=== PATIENT | female | born 1970 | race Two or more races ===

== ENCOUNTER 2021-06-30 11:51 | Day surgery (SDC) | payer OTHER ==
[~2021-06-30 11:51] MED LIST: ATORVASTATIN CA10 MG PO; LYRICA20 MG/1 ML PO; PROTONIX20 MG PO; TRAZODONE HCL150 MG PO; WELLBUTRIN SR100 MG PO
== END 2021-06-30 22:55 | disposition home or self-care (01) ==
LOC: CIR.AMB 11:51
PROVIDERS: ATTEND Obstetrics & Gynecology Obstetrics
DX: Z88.2 Allergy status to sulfonamides (principal); Z88.6 Allergy status to analgesic agent; Z91.040 Latex allergy status; J45.909 Unspecified asthma, uncomplicated; G47.33 Obstructive sleep apnea (adult) (pediatric); G43.909 Migraine, unspecified, not intractable, without status migrainosus; F32.A Depression, unspecified; R20.2 Paresthesia of skin; Z20.822 Contact with and (suspected) exposure to COVID-19

== ENCOUNTER 2022-10-12 09:36 | Emergency (ER) | payer OTHER ==
[~2022-10-12] VITALS: Ht 157.5 cm; Wt 77.1 kg
[~2022-10-12 09:36] MED LIST changes: +BIOTIN10 MG; +BUPROPION XL150 MG; +BUPROPION XL300 MG; +CETIRIZINE HCL10 MG; +CLONAZEPAM2 M1 PO; +CYANOCOBAL1000 MCG/1; +DULOXETINE HCL60 MG; +EPINEPHRIN0.3 MG/0.3; +FERROUS FUMARA324 MG PO; +FOLIC ACID0.8 M1 PO; +FOLIC ACID1 MG; +LAXATIVE5 MG; +MODAFINIL200 MG; +MONTELUKAST SOD10 MG; +PANTOPRAZOLE SO40 MG; +PEPCID40 MG PO; +PRAVASTATIN SOD40 MG PO; +SERTRALINE HCL100 MG; +SUCRALFATE1 GM; +TRIPLE ANTIBI28.4 G3; +VENTOLIN HFA18 GM
[2022-10-12] MEDS ORDERED: PRAVASTATIN SODIUM (12:45)
[2022-10-12] MEDS ORDERED: CEPACOL SORE T1 EAC1 PO (12:47)
== END 2022-10-12 12:58 | disposition home or self-care (01) ==
LOC: ER 09:36
DX: J06.9 Acute upper respiratory infection, unspecified (principal); Z88.2 Allergy status to sulfonamides; Z91.013 Allergy to seafood; Z91.040 Latex allergy status; M79.7 Fibromyalgia; G62.9 Polyneuropathy, unspecified; J06.0 Acute laryngopharyngitis; Z20.822 Contact with and (suspected) exposure to COVID-19

== ENCOUNTER 2023-04-28 16:46 | Emergency (ER) | payer OTHER ==
[~2023-04-28] VITALS: Ht 157.5 cm; Wt 77.1 kg
[~2023-04-28 16:46] MED LIST changes: +CEPACOL SORE T1 EAC1 PO; +PRAVASTATIN SODIUM
[2023-04-28] MEDS ORDERED: NEXIUM5 MG (17:35)
[2023-04-28 19:42] LABS: HEMATOCRIT 41.8 % (36.0-45.00); HEMOGLOBIN 13.9 g/dL (12.0-15.00); MEAN CELL VOLUME 81.4 fL (80.00-100.00); MEAN CORPUSCULAR HEMOGLOBIN 27.2 pg (27.00-32.0); MEAN CORPUSCULAR HGB CONC 33.4 g/dl (32.0-36.0); PLATELET COUNT 219 K/uL (150-450); RED BLOOD COUNT 5.14 M/uL (4.00-6.00); RED CELL DISTRIBUTION WIDTH 14.2 % (11.5-14.5)
[2023-04-28 20:00] LABS: ALBUMIN 3.7 gm/dL (3.4-5.0); BILIRUBIN TOTAL 0.58 mg/dL (0.3-1.2); CALCIUM 9.2 mg/dL (8.5-10.1); CREATININE SERUM 0.9 mg/dL (0.55-1.02); GFR 65.5; GLOBULINA 3.9 G/DL (2.4-3.5); POTASSIUM 3.76 mEq/L (3.5-5.1); TOTAL PROTEIN 7.6 gm/dL (6.4-8.2)
== END 2023-04-29 00:59 | disposition home or self-care (01) ==
LOC: ER 16:47
PROVIDERS: Emergency Medicine
DX: M54.2 Cervicalgia (principal)
CPT/HCPCS: 72040; 96372; 99284; J1885; J3301